=== PATIENT | male | born 1985 | race African-American/Black ===

== ENCOUNTER 2017-11-18 08:25 | Emergency (ER) | payer MEDICAID ==
[~2017-11-18] VITALS: Ht 170.2 cm; Wt 87.0 kg
[2017-11-18 08:45] VITALS: BP 122/76
== END 2017-11-18 11:36 | disposition home or self-care (01) ==
LOC: ER 09:06
DX: B34.9 Viral infection, unspecified (principal)
CPT/HCPCS: 71045; 99283

== ENCOUNTER 2019-07-06 08:28 | Emergency (ER) | payer MEDICAID ==
[~2019-07-06] VITALS: Ht 167.6 cm; Wt 85.0 kg
[2019-07-06] MEDS ORDERED: KETOROLAC 30MG/ML VIAL IM ONE (11:30)
[2019-07-06] MEDS ORDERED: ACETAMINOPHEN 325MG TABLET PO ONE (12:30)
[2019-07-06 12:45] VITALS: BP 153/95
== END 2019-07-06 12:58 | disposition home or self-care (01) ==
LOC: ER 08:28
DX: M79.641 Pain in right hand (principal); I10 Essential (primary) hypertension; R56.9 Unspecified convulsions
CPT/HCPCS: 29125; 73130; 96372; 99283; J1885

== ENCOUNTER 2024-02-18 09:27 | Emergency (ER) | payer SELFPAY ==
[~2024-02-18] VITALS: Ht 170.2 cm; Wt 90.7 kg
[2024-02-18 09:35] VITALS: O2SAT 97
[2024-02-18] MEDS ORDERED: OCUFLX EACHEYE (10:01)
[2024-02-18 10:10] VITALS: BP 124/65; PULSE 70; RESP 18; TEMP 98.2
== END 2024-02-18 10:17 | disposition home or self-care (01) ==
LOC: ER 09:27
DX: H10.31 Unspecified acute conjunctivitis, right eye (principal); I10 Essential (primary) hypertension; G40.909 Epilepsy, unspecified, not intractable, without status epilepticus
CPT/HCPCS: 99283